=== PATIENT | female | born 1990 | race Caucasian/White ===

== ENCOUNTER 2020-01-25 18:50 | Inpatient (IN) | payer OTHER ==
[~2020-01-25] VITALS: Ht 175.3 cm; Wt 76.0 kg
[2020-01-25 19:06] VITALS: BP 123/68
[2020-01-25 19:35] LABS: BASOPHILS # (AUTO) 0.04 x10^3/uL (0-0.1); BASOPHILS % (AUTO) 0 % (0-1); EOSINOPHILS # (AUTO) 0.08 x10^3/uL (0-0.4); EOSINOPHILS % (AUTO) 1 % (1-7); LYMPHOCYTES # (AUTO) 2.25 x10^3/uL (1-3.4); LYMPHOCYTES % (AUTO) 24 % (22-44); MD NO; MEAN CORPUSCULAR HGB CONC 33.8 g/dL (32.4-35.8); MEAN CORPUSCULAR VOLUME 88.9 fL (80-100); MEAN PLATELET VOLUME 8.6 fL (7.4-10.4); MONOCYTES # (AUTO) 0.95 x10^3/uL (0.2-0.8); MONOCYTES % (AUTO) 10 % (2-9); NEUTROPHILS # (AUTO) 6.28 x10^3/uL (1.8-6.8); NEUTROPHILS % (AUTO) 66 % (42-75); PLATELET COUNT 199 x10^3/uL (130-400); RED BLOOD COUNT 3.83 x10^6/uL (3.82-5.3); RED CELL DISTRIBUTION WIDTH 12.8 % (9.6-15.2)
[2020-01-25] MEDS: LACTATED RINGERS 1,000 ML IV SCH (20:00)
[2020-01-25 20:04] LABS: INTERNATIONAL NORMALIZED RATIO 0.87 (0.93-1.1); PROTHROMBIN TIME 9.2 Seconds (9.6-11.5)
[2020-01-25] MEDS: FAMOTIDINE 20 MG TABLET PO SCH (21:00)
[2020-01-25] MEDS: PRENATAL VIT/IRON/FA 1 EACH TABLET PO SCH (21:00)
[2020-01-25] MEDS ORDERED: PLEASE ENTER ALLERGIES MC SCH (21:00)
[2020-01-25] MEDS ORDERED: POLYETHYLENE GLYCOL 17 GM PACKET PO ONE (21:00)
[2020-01-26] MEDS: LACTATED RINGERS 1,000 ML IV SCH ×3 (03:00→17:57)
[2020-01-26] MEDS ORDERED: FAMOTIDINE 20 MG TABLET ONE ×2 (07:11→16:02)
[2020-01-26] MEDS ORDERED: FERROUS GLUCONATE 324 MG TABLET ONE (07:12)
[2020-01-26] MEDS: FAMOTIDINE 20 MG TABLET PO SCH ×2 (07:13→16:06)
[2020-01-26] MEDS: FERROUS GLUCONATE 324 MG TABLET PO SCH (07:13)
[2020-01-26] MEDS ORDERED: PRENATAL VIT/IRON/FA 1 EACH TABLET ONE (19:50)
[2020-01-26 20:08] VITALS: BP 125/69
[2020-01-26] MEDS ORDERED: ACETAMINOPHEN 325 MG TABLET ONE (20:14)
[2020-01-26] MEDS ORDERED: CALCIUM CARBONATE 500 MG TAB.CHEW ONE (20:15)
[2020-01-26] MEDS: PRENATAL VIT/IRON/FA 1 EACH TABLET PO SCH (20:22)
[2020-01-26] MEDS: CALCIUM CARBONATE 500 MG TAB.CHEW PO PRN (20:23)
[2020-01-26] MEDS ORDERED: ACETAMINOPHEN 325 MG TABLET PO PRN (20:30)
[2020-01-27] MEDS: LACTATED RINGERS 1,000 ML IV SCH ×3 (01:42→20:30)
[2020-01-27 03:30] VITALS: BP 109/52
[2020-01-27 08:30] VITALS: BP 117/56
[2020-01-27] MEDS ORDERED: FERROUS GLUCONATE 324 MG TABLET ONE (08:44)
[2020-01-27] MEDS: FERROUS GLUCONATE 324 MG TABLET PO SCH (08:49)
[2020-01-27] MEDS: FAMOTIDINE 20 MG TABLET PO SCH ×2 (09:00→15:39)
[2020-01-27] MEDS ORDERED: FAMOTIDINE 20 MG TABLET ONE (15:37)
[2020-01-27] MEDS ORDERED: PRENATAL VIT/IRON/FA 1 EACH TABLET ONE (19:52)
[2020-01-27 20:28] VITALS: BP 128/68
[2020-01-27] MEDS: PRENATAL VIT/IRON/FA 1 EACH TABLET PO SCH (20:30)
[2020-01-27] MEDS ORDERED: MAGNESIUM HYDROXIDE 8%, 30ML UDC ONE (20:42)
[2020-01-27] MEDS ORDERED: MAGNESIUM HYDROXIDE 8%, 30ML UDC PO PRN (21:00)
[2020-01-28] MEDS: LACTATED RINGERS 1,000 ML IV SCH (04:15)
[2020-01-28] MEDS ORDERED: FERROUS GLUCONATE 324 MG TABLET ONE (09:42)
[2020-01-28] MEDS: FERROUS GLUCONATE 324 MG TABLET PO SCH (09:59)
[2020-01-28 16:00] VITALS: BP 113/60
[2020-01-28] MEDS ORDERED: FAMOTIDINE 20 MG TABLET ONE (18:32)
[2020-01-28] MEDS: FAMOTIDINE 20 MG TABLET PO SCH (18:34)
[2020-01-28] MEDS ORDERED: PRENATAL VIT/IRON/FA 1 EACH TABLET ONE (20:59)
[2020-01-28] MEDS: PRENATAL VIT/IRON/FA 1 EACH TABLET PO SCH (21:01)
[2020-01-29] MEDS: LACTATED RINGERS 1,000 ML IV SCH ×4 (03:32→19:32)
[2020-01-29] MEDS ORDERED: FERROUS GLUCONATE 324 MG TABLET ONE (07:49)
[2020-01-29] MEDS: FERROUS GLUCONATE 324 MG TABLET PO SCH (07:52)
[2020-01-29 08:24] VITALS: BP 122/70
[2020-01-29] MEDS: MAGNESIUM SULF. PMX 20GM/500ML 500 ML IV SCH (15:23)
[2020-01-29] MEDS ORDERED: MAGNESIUM SULF. PMX 20GM/500ML 500 ML IV ONE (15:27)
[2020-01-29] MEDS: SIMETHICONE 125 MG CHEW TAB PO SCH (15:53)
[2020-01-29] MEDS ORDERED: FAMOTIDINE 20 MG TABLET ONE (17:36)
[2020-01-29] MEDS ORDERED: PRENATAL VIT/IRON/FA 1 EACH TABLET ONE (17:36)
[2020-01-29] MEDS: FAMOTIDINE 20 MG TABLET PO SCH (17:39)
[2020-01-29] MEDS: PRENATAL VIT/IRON/FA 1 EACH TABLET PO SCH (17:39)
[2020-01-29 19:43] VITALS: BP 127/73
[2020-01-29] MEDS: POLYETHYLENE GLYCOL 17 GM PACKET NG SCH (20:15)
[2020-01-30] MEDS ORDERED: MAGNESIUM SULF. PMX 20GM/500ML 500 ML IV ONE (01:41)
[2020-01-30] MEDS: MAGNESIUM SULF. PMX 20GM/500ML 500 ML IV SCH (01:42)
[2020-01-30] MEDS: LACTATED RINGERS 1,000 ML IV SCH (01:42)
[2020-01-30 01:44] VITALS: BP 136/73
[2020-01-30 09:00] VITALS: BP 119/59
[2020-01-30] MEDS ORDERED: FERROUS GLUCONATE 324 MG TABLET ONE (10:26)
[2020-01-30] MEDS ORDERED: SIMETHICONE 80 MG CHEW TAB ONE (10:26)
[2020-01-30] MEDS: SIMETHICONE 125 MG CHEW TAB PO SCH ×3 (13:00→19:51)
[2020-01-30] MEDS ORDERED: PRENATAL VIT/IRON/FA 1 EACH TABLET ONE (16:09)
[2020-01-30] MEDS ORDERED: FAMOTIDINE 20 MG TABLET ONE (16:10)
[2020-01-30] MEDS: PRENATAL VIT/IRON/FA 1 EACH TABLET PO SCH (17:04)
[2020-01-30] MEDS: FAMOTIDINE 20 MG TABLET PO SCH (17:04)
[2020-01-30] MEDS: FERROUS GLUCONATE 324 MG TABLET PO SCH (17:05)
[2020-01-30] MEDS: POLYETHYLENE GLYCOL 17 GM PACKET NG SCH (17:06)
[2020-01-31] MEDS: SIMETHICONE 125 MG CHEW TAB PO SCH ×3 (08:00→18:00)
[2020-01-31] MEDS ORDERED: PRENATAL VIT/IRON/FA 1 EACH TABLET ONE (16:54)
[2020-01-31] MEDS ORDERED: SIMETHICONE 80 MG CHEW TAB ONE (16:54)
[2020-01-31] MEDS ORDERED: FAMOTIDINE 20 MG TABLET ONE (16:54)
[2020-01-31] MEDS ORDERED: FERROUS GLUCONATE 324 MG TABLET ONE (16:54)
[2020-01-31] MEDS: FAMOTIDINE 20 MG TABLET PO SCH (16:57)
[2020-01-31] MEDS: FERROUS GLUCONATE 324 MG TABLET PO SCH (16:57)
[2020-01-31] MEDS: PRENATAL VIT/IRON/FA 1 EACH TABLET PO SCH (16:57)
[2020-01-31] MEDS: POLYETHYLENE GLYCOL 17 GM PACKET NG SCH (17:39)
[2020-01-31 19:09] VITALS: BP 132/74
[2020-01-31] MEDS ORDERED: SIMETHICONE 125 MG CHEW TAB PO PRN (19:30)
[2020-01-31] MEDS: SODIUM CHLORIDE FLUSH 3ML SYRINGE IVF SCH (21:19)
[2020-02-01] MEDS: SODIUM CHLORIDE FLUSH 3ML SYRINGE IVF SCH ×2 (12:00→21:30)
[2020-02-01] MEDS ORDERED: FERROUS GLUCONATE 324 MG TABLET ONE (17:45)
[2020-02-01] MEDS ORDERED: FAMOTIDINE 20 MG TABLET ONE (17:45)
[2020-02-01] MEDS ORDERED: PRENATAL VIT/IRON/FA 1 EACH TABLET ONE (17:45)
[2020-02-01] MEDS: POLYETHYLENE GLYCOL 17 GM PACKET PO SCH (17:50)
[2020-02-01] MEDS: PRENATAL VIT/IRON/FA 1 EACH TABLET PO SCH (17:50)
[2020-02-01] MEDS: FERROUS GLUCONATE 324 MG TABLET PO SCH (17:50)
[2020-02-01] MEDS: FAMOTIDINE 20 MG TABLET PO SCH (17:50)
[2020-02-02] MEDS: SODIUM CHLORIDE FLUSH 3ML SYRINGE IVF SCH (08:15)
[2020-02-02] MEDS ORDERED: PRENATAL VIT/IRON/FA 1 EACH TABLET ONE (17:02)
[2020-02-02] MEDS ORDERED: FAMOTIDINE 20 MG TABLET ONE (17:02)
[2020-02-02] MEDS ORDERED: FERROUS GLUCONATE 324 MG TABLET ONE (17:02)
[2020-02-02] MEDS: FAMOTIDINE 20 MG TABLET PO SCH (17:10)
[2020-02-02] MEDS: FERROUS GLUCONATE 324 MG TABLET PO SCH (17:10)
[2020-02-02] MEDS: PRENATAL VIT/IRON/FA 1 EACH TABLET PO SCH (17:10)
[2020-02-02] MEDS: POLYETHYLENE GLYCOL 17 GM PACKET PO SCH (17:11)
[2020-02-03] MEDS: SODIUM CHLORIDE FLUSH 3ML SYRINGE IVF SCH ×2 (09:00→16:56)
[2020-02-03] MEDS ORDERED: PRENATAL VIT/IRON/FA 1 EACH TABLET ONE ×2 (16:41→19:56)
[2020-02-03] MEDS ORDERED: FERROUS SULFATE 325 MG TABLET ONE (16:41)
[2020-02-03] MEDS ORDERED: FAMOTIDINE 20 MG TABLET ONE (16:41)
[2020-02-03] MEDS: FAMOTIDINE 20 MG TABLET PO SCH (16:47)
[2020-02-03] MEDS ORDERED: FERROUS GLUCONATE 324 MG TABLET ONE (16:48)
[2020-02-03] MEDS: FERROUS GLUCONATE 324 MG TABLET PO SCH (16:50)
[2020-02-03] MEDS: PRENATAL VIT/IRON/FA 1 EACH TABLET PO SCH ×2 (17:00→20:12)
[2020-02-03] MEDS: POLYETHYLENE GLYCOL 17 GM PACKET PO SCH (20:12)
[2020-02-04] MEDS: SODIUM CHLORIDE FLUSH 3ML SYRINGE IVF SCH (09:43)
[2020-02-04] MEDS ORDERED: FERROUS GLUCONATE 324 MG TABLET ONE (16:38)
[2020-02-04] MEDS ORDERED: PRENATAL VIT/IRON/FA 1 EACH TABLET ONE (16:38)
[2020-02-04] MEDS ORDERED: FAMOTIDINE 20 MG TABLET ONE (16:38)
[2020-02-04] MEDS: POLYETHYLENE GLYCOL 17 GM PACKET PO SCH (17:00)
[2020-02-04] MEDS: FAMOTIDINE 20 MG TABLET PO SCH (17:09)
[2020-02-04] MEDS: PRENATAL VIT/IRON/FA 1 EACH TABLET PO SCH (17:09)
[2020-02-04] MEDS: FERROUS GLUCONATE 324 MG TABLET PO SCH (17:09)
[2020-02-05] MEDS: SODIUM CHLORIDE FLUSH 3ML SYRINGE IVF SCH ×3 (09:56→16:51)
[2020-02-05] MEDS ORDERED: FERROUS GLUCONATE 324 MG TABLET ONE (16:40)
[2020-02-05] MEDS ORDERED: FAMOTIDINE 20 MG TABLET ONE (16:41)
[2020-02-05] MEDS ORDERED: PRENATAL VIT/IRON/FA 1 EACH TABLET ONE (16:41)
[2020-02-05] MEDS: PRENATAL VIT/IRON/FA 1 EACH TABLET PO SCH (16:51)
[2020-02-05] MEDS: FAMOTIDINE 20 MG TABLET PO SCH (16:51)
[2020-02-05] MEDS: FERROUS GLUCONATE 324 MG TABLET PO SCH (16:51)
[2020-02-05] MEDS: POLYETHYLENE GLYCOL 17 GM PACKET PO SCH (16:54)
[2020-02-05 20:14] VITALS: BP 121/70
[2020-02-06 07:55] VITALS: BP 110/65
[2020-02-06] MEDS: SODIUM CHLORIDE FLUSH 3ML SYRINGE IVF SCH (09:00)
[2020-02-06] MEDS ORDERED: FERROUS GLUCONATE 324 MG TABLET ONE (16:39)
[2020-02-06] MEDS ORDERED: PRENATAL VIT/IRON/FA 1 EACH TABLET ONE (16:39)
[2020-02-06] MEDS ORDERED: FAMOTIDINE 20 MG TABLET ONE (16:39)
[2020-02-06] MEDS ORDERED: POLYETHYLENE GLYCOL 17 GM PACKET ONE (16:52)
[2020-02-06] MEDS: FAMOTIDINE 20 MG TABLET PO SCH (16:55)
[2020-02-06] MEDS: POLYETHYLENE GLYCOL 17 GM PACKET PO SCH (16:55)
[2020-02-06] MEDS: PRENATAL VIT/IRON/FA 1 EACH TABLET PO SCH (16:55)
[2020-02-06] MEDS: FERROUS GLUCONATE 324 MG TABLET PO SCH (16:56)
[2020-02-06 19:31] VITALS: BP 117/65
[2020-02-07] MEDS ORDERED: PRENATAL VIT/IRON/FA 1 EACH TABLET ONE (17:01)
[2020-02-07] MEDS ORDERED: FAMOTIDINE 20 MG TABLET ONE (17:01)
[2020-02-07] MEDS ORDERED: FERROUS GLUCONATE 324 MG TABLET ONE (17:01)
[2020-02-07] MEDS: FAMOTIDINE 20 MG TABLET PO SCH (17:03)
[2020-02-07] MEDS: FERROUS GLUCONATE 324 MG TABLET PO SCH (17:03)
[2020-02-07] MEDS: PRENATAL VIT/IRON/FA 1 EACH TABLET PO SCH (17:03)
[2020-02-07] MEDS: SODIUM CHLORIDE FLUSH 3ML SYRINGE IVF SCH (21:00)
[2020-02-08] MEDS: SODIUM CHLORIDE FLUSH 3ML SYRINGE IVF SCH (11:00)
[2020-02-08] MEDS ORDERED: FAMOTIDINE 20 MG TABLET ONE (15:49)
[2020-02-08] MEDS ORDERED: FERROUS GLUCONATE 324 MG TABLET ONE (15:49)
[2020-02-08] MEDS ORDERED: PRENATAL VIT/IRON/FA 1 EACH TABLET ONE (15:49)
[2020-02-08] MEDS: FAMOTIDINE 20 MG TABLET PO SCH (16:30)
[2020-02-08] MEDS: FERROUS GLUCONATE 324 MG TABLET PO SCH (17:00)
[2020-02-08] MEDS: PRENATAL VIT/IRON/FA 1 EACH TABLET PO SCH (17:00)
[2020-02-08] MEDS ORDERED: POLYETHYLENE GLYCOL 17 GM PACKET ONE (18:23)
[2020-02-08] MEDS: POLYETHYLENE GLYCOL 17 GM PACKET PO SCH (18:26)
[2020-02-09] MEDS: SODIUM CHLORIDE FLUSH 3ML SYRINGE IVF SCH (11:00)
[2020-02-09] MEDS ORDERED: FERROUS GLUCONATE 324 MG TABLET ONE (16:14)
[2020-02-09] MEDS ORDERED: PRENATAL VIT/IRON/FA 1 EACH TABLET ONE (16:15)
[2020-02-09] MEDS ORDERED: FAMOTIDINE 20 MG TABLET ONE (16:15)
[2020-02-09] MEDS: PRENATAL VIT/IRON/FA 1 EACH TABLET PO SCH (16:16)
[2020-02-09] MEDS: FAMOTIDINE 20 MG TABLET PO SCH (16:17)
[2020-02-09] MEDS: FERROUS GLUCONATE 324 MG TABLET PO SCH (16:17)
[2020-02-10] MEDS: SODIUM CHLORIDE FLUSH 3ML SYRINGE IVF SCH ×2 (09:00→21:00)
[2020-02-10] MEDS ORDERED: FERROUS GLUCONATE 324 MG TABLET ONE (17:04)
[2020-02-10] MEDS ORDERED: PRENATAL VIT/IRON/FA 1 EACH TABLET ONE (17:04)
[2020-02-10] MEDS ORDERED: FAMOTIDINE 20 MG TABLET ONE (17:05)
[2020-02-10] MEDS: FERROUS GLUCONATE 324 MG TABLET PO SCH (17:06)
[2020-02-10] MEDS: FAMOTIDINE 20 MG TABLET PO SCH (17:06)
[2020-02-10] MEDS: PRENATAL VIT/IRON/FA 1 EACH TABLET PO SCH (17:06)
[2020-02-11] MEDS: SODIUM CHLORIDE FLUSH 3ML SYRINGE IVF SCH ×4 (09:00→23:00)
[2020-02-11] MEDS ORDERED: FAMOTIDINE 20 MG TABLET ONE (15:50)
[2020-02-11] MEDS: FAMOTIDINE 20 MG TABLET PO SCH (15:52)
[2020-02-11] MEDS ORDERED: FERROUS GLUCONATE 324 MG TABLET ONE (16:49)
[2020-02-11] MEDS ORDERED: PRENATAL VIT/IRON/FA 1 EACH TABLET ONE (16:49)
[2020-02-11] MEDS: PRENATAL VIT/IRON/FA 1 EACH TABLET PO SCH (16:50)
[2020-02-11] MEDS: FERROUS GLUCONATE 324 MG TABLET PO SCH (16:50)
[2020-02-11 19:06] VITALS: BP 108/67
[2020-02-12] MEDS: POLYETHYLENE GLYCOL 17 GM PACKET PO SCH ×2 (09:00→17:03)
[2020-02-12] MEDS: SODIUM CHLORIDE FLUSH 3ML SYRINGE IVF SCH ×2 (09:00→21:00)
[2020-02-12] MEDS ORDERED: FAMOTIDINE 20 MG TABLET ONE (15:52)
[2020-02-12] MEDS: FAMOTIDINE 20 MG TABLET PO SCH (15:53)
[2020-02-12] MEDS ORDERED: PRENATAL VIT/IRON/FA 1 EACH TABLET ONE (16:59)
[2020-02-12] MEDS ORDERED: POLYETHYLENE GLYCOL 17 GM PACKET ONE (16:59)
[2020-02-12] MEDS ORDERED: FERROUS GLUCONATE 324 MG TABLET ONE (16:59)
[2020-02-12] MEDS: PRENATAL VIT/IRON/FA 1 EACH TABLET PO SCH (17:03)
[2020-02-12] MEDS: FERROUS GLUCONATE 324 MG TABLET PO SCH (17:03)
[2020-02-12 19:13] VITALS: BP 115/78
[2020-02-13] MEDS: SODIUM CHLORIDE FLUSH 3ML SYRINGE IVF SCH ×4 (09:00→21:00)
[2020-02-13] MEDS: POLYETHYLENE GLYCOL 17 GM PACKET PO SCH ×2 (09:00→16:08)
[2020-02-13] MEDS ORDERED: FERROUS GLUCONATE 324 MG TABLET ONE (16:03)
[2020-02-13] MEDS ORDERED: FAMOTIDINE 20 MG TABLET ONE (16:03)
[2020-02-13] MEDS ORDERED: PRENATAL VIT/IRON/FA 1 EACH TABLET ONE (16:03)
[2020-02-13] MEDS ORDERED: POLYETHYLENE GLYCOL 17 GM PACKET ONE (16:03)
[2020-02-13] MEDS: PRENATAL VIT/IRON/FA 1 EACH TABLET PO SCH (16:07)
[2020-02-13] MEDS: FAMOTIDINE 20 MG TABLET PO SCH (16:07)
[2020-02-13] MEDS: FERROUS GLUCONATE 324 MG TABLET PO SCH (16:07)
[2020-02-14] MEDS: SODIUM CHLORIDE FLUSH 3ML SYRINGE IVF SCH ×2 (09:00→21:00)
[2020-02-14] MEDS: POLYETHYLENE GLYCOL 17 GM PACKET PO SCH ×2 (09:00→16:49)
[2020-02-14 11:00] VITALS: BP 116/65
[2020-02-14] MEDS ORDERED: PRENATAL VIT/IRON/FA 1 EACH TABLET ONE (16:42)
[2020-02-14] MEDS ORDERED: POLYETHYLENE GLYCOL 17 GM PACKET ONE (16:43)
[2020-02-14] MEDS ORDERED: FERROUS GLUCONATE 324 MG TABLET ONE (16:43)
[2020-02-14] MEDS ORDERED: FAMOTIDINE 20 MG TABLET ONE (16:43)
[2020-02-14] MEDS: PRENATAL VIT/IRON/FA 1 EACH TABLET PO SCH (16:49)
[2020-02-14] MEDS: FERROUS GLUCONATE 324 MG TABLET PO SCH (16:49)
[2020-02-14] MEDS: FAMOTIDINE 20 MG TABLET PO SCH (16:49)
[2020-02-14 19:19] VITALS: BP 118/66
[2020-02-15] MEDS: POLYETHYLENE GLYCOL 17 GM PACKET PO SCH (09:00)
[2020-02-15] MEDS: SODIUM CHLORIDE FLUSH 3ML SYRINGE IVF SCH ×2 (09:00→21:00)
[2020-02-15] MEDS ORDERED: FAMOTIDINE 20 MG TABLET ONE (15:18)
[2020-02-15] MEDS: FAMOTIDINE 20 MG TABLET PO SCH (15:19)
[2020-02-15] MEDS: PRENATAL VIT/IRON/FA 1 EACH TABLET PO SCH (17:43)
[2020-02-15] MEDS: FERROUS GLUCONATE 324 MG TABLET PO SCH (17:43)
[2020-02-16] MEDS: SODIUM CHLORIDE FLUSH 3ML SYRINGE IVF SCH ×3 (03:00→21:04)
[2020-02-16] MEDS: POLYETHYLENE GLYCOL 17 GM PACKET PO SCH ×2 (09:00→17:39)
[2020-02-16] MEDS ORDERED: FERROUS GLUCONATE 324 MG TABLET ONE (17:31)
[2020-02-16] MEDS ORDERED: FAMOTIDINE 20 MG TABLET ONE (17:31)
[2020-02-16] MEDS ORDERED: PRENATAL VIT/IRON/FA 1 EACH TABLET ONE (17:31)
[2020-02-16] MEDS: PRENATAL VIT/IRON/FA 1 EACH TABLET PO SCH (17:33)
[2020-02-16] MEDS: FERROUS GLUCONATE 324 MG TABLET PO SCH (17:33)
[2020-02-16] MEDS: FAMOTIDINE 20 MG TABLET PO SCH (17:33)
[2020-02-16] MEDS ORDERED: POLYETHYLENE GLYCOL 17 GM PACKET ONE (17:37)
[2020-02-16 19:10] VITALS: BP 111/76
[2020-02-17] MEDS: POLYETHYLENE GLYCOL 17 GM PACKET PO SCH (09:00)
[2020-02-17 10:30] VITALS: BP 120/63
[2020-02-17] MEDS ORDERED: FAMOTIDINE 20 MG TABLET ONE (17:32)
[2020-02-17] MEDS ORDERED: PRENATAL VIT/IRON/FA 1 EACH TABLET ONE (17:33)
[2020-02-17] MEDS ORDERED: DOCUSATE 100 MG CAPSULE ONE (17:33)
[2020-02-17] MEDS: FAMOTIDINE 20 MG TABLET PO SCH (17:35)
[2020-02-17] MEDS: PRENATAL VIT/IRON/FA 1 EACH TABLET PO SCH (17:35)
[2020-02-17] MEDS ORDERED: FERROUS SULFATE 325 MG TABLET ONE (17:39)
[2020-02-17] MEDS: FERROUS GLUCONATE 324 MG TABLET PO SCH (17:51)
[2020-02-17] MEDS: SODIUM CHLORIDE FLUSH 3ML SYRINGE IVF SCH ×2 (17:53→21:15)
[2020-02-18] MEDS ORDERED: FAMOTIDINE 20 MG TABLET ONE (16:07)
[2020-02-18] MEDS: FAMOTIDINE 20 MG TABLET PO SCH (16:08)
[2020-02-18] MEDS ORDERED: PRENATAL VIT/IRON/FA 1 EACH TABLET ONE (16:54)
[2020-02-18] MEDS ORDERED: FERROUS GLUCONATE 324 MG TABLET ONE (16:54)
[2020-02-18] MEDS: SODIUM CHLORIDE FLUSH 3ML SYRINGE IVF SCH ×2 (16:56→21:00)
[2020-02-18] MEDS: FERROUS GLUCONATE 324 MG TABLET PO SCH (16:56)
[2020-02-18] MEDS: PRENATAL VIT/IRON/FA 1 EACH TABLET PO SCH (16:56)
[2020-02-18] MEDS ORDERED: POLYETHYLENE GLYCOL 17 GM PACKET ONE (16:59)
[2020-02-18] MEDS: POLYETHYLENE GLYCOL 17 GM PACKET PO SCH (17:00)
[2020-02-19] MEDS: SODIUM CHLORIDE FLUSH 3ML SYRINGE IVF SCH (08:14)
[2020-02-19 08:15] VITALS: BP 121/57
[2020-02-19] MEDS ORDERED: FAMOTIDINE 20 MG TABLET ONE (11:24)
[2020-02-19] MEDS: FAMOTIDINE 20 MG TABLET PO SCH (11:25)
[2020-02-19] MEDS: FERROUS GLUCONATE 324 MG TABLET PO SCH (16:30)
[2020-02-19] MEDS ORDERED: PRENATAL VIT/IRON/FA 1 EACH TABLET ONE (16:50)
[2020-02-19] MEDS ORDERED: POLYETHYLENE GLYCOL 17 GM PACKET ONE (16:50)
[2020-02-19] MEDS ORDERED: FERROUS GLUCONATE 324 MG TABLET ONE (16:50)
[2020-02-19] MEDS ORDERED: DOCUSATE 100 MG CAPSULE ONE (16:50)
[2020-02-19] MEDS: DOCUSATE 100 MG CAPSULE PO SCH (16:54)
[2020-02-19] MEDS: POLYETHYLENE GLYCOL 17 GM PACKET PO SCH (16:54)
[2020-02-19] MEDS: PRENATAL VIT/IRON/FA 1 EACH TABLET PO SCH (16:54)
[2020-02-20] MEDS: SODIUM CHLORIDE FLUSH 3ML SYRINGE IVF SCH ×3 (03:25→19:26)
[2020-02-20 08:00] VITALS: BP 111/58
[2020-02-20] MEDS ORDERED: DOCUSATE 100 MG CAPSULE ONE ×2 (08:06→19:22)
[2020-02-20] MEDS: DOCUSATE 100 MG CAPSULE PO SCH ×2 (08:08→19:26)
[2020-02-20 08:10] LABS: BASOPHILS # (AUTO) 0.02 x10^3/uL (0-0.1); BASOPHILS % (AUTO) 0 % (0-1); EOSINOPHILS # (AUTO) 0.09 x10^3/uL (0-0.4); EOSINOPHILS % (AUTO) 1 % (1-7); LYMPHOCYTES % (AUTO) 23 % (22-44); MD NO; MEAN CORPUSCULAR HEMOGLOBIN 30.3 pg (27.0-34.8); MEAN CORPUSCULAR HGB CONC 33.9 g/dL (32.4-35.8); MEAN CORPUSCULAR VOLUME 89.3 fL (80-100); MEAN PLATELET VOLUME 8.8 fL (7.4-10.4); MONOCYTES # (AUTO) 0.59 x10^3/uL (0.2-0.8); MONOCYTES % (AUTO) 7 % (2-9); NEUTROPHILS # (AUTO) 5.88 x10^3/uL (1.8-6.8); NEUTROPHILS % (AUTO) 69 % (42-75); PLATELET COUNT 193 x10^3/uL (130-400); RED BLOOD COUNT 4.16 x10^6/uL (3.82-5.3); RED CELL DISTRIBUTION WIDTH 12.8 % (9.6-15.2)
[2020-02-20] MEDS ORDERED: FAMOTIDINE 20 MG TABLET ONE (14:27)
[2020-02-20] MEDS: FAMOTIDINE 20 MG TABLET PO SCH (14:29)
[2020-02-20] MEDS ORDERED: POLYETHYLENE GLYCOL 17 GM PACKET ONE (16:53)
[2020-02-20] MEDS ORDERED: PRENATAL VIT/IRON/FA 1 EACH TABLET ONE (16:53)
[2020-02-20] MEDS: POLYETHYLENE GLYCOL 17 GM PACKET PO SCH (16:56)
[2020-02-20] MEDS: PRENATAL VIT/IRON/FA 1 EACH TABLET PO SCH (16:56)
[2020-02-21 07:55] VITALS: BP 117/60
[2020-02-21] MEDS: SODIUM CHLORIDE FLUSH 3ML SYRINGE IVF SCH (07:55)
[2020-02-21] MEDS ORDERED: DOCUSATE 100 MG CAPSULE ONE (08:14)
[2020-02-21] MEDS ORDERED: PRENATAL VIT/IRON/FA 1 EACH TABLET ONE (08:14)
[2020-02-21] MEDS: DOCUSATE 100 MG CAPSULE PO SCH (08:18)
[2020-02-21] MEDS: PRENATAL VIT/IRON/FA 1 EACH TABLET PO SCH (08:19)
[2020-02-21] MEDS ORDERED: FAMOTIDINE 20 MG TABLET ONE (14:38)
[2020-02-21] MEDS: FAMOTIDINE 20 MG TABLET PO SCH (14:41)
[2020-02-21] MEDS ORDERED: POLYETHYLENE GLYCOL 17 GM PACKET ONE (16:35)
[2020-02-21] MEDS: POLYETHYLENE GLYCOL 17 GM PACKET PO SCH (16:38)
[2020-02-22] MEDS ORDERED: DOCUSATE 100 MG CAPSULE ONE ×2 (11:33→22:02)
[2020-02-22] MEDS ORDERED: FAMOTIDINE 20 MG TABLET ONE (11:33)
[2020-02-22] MEDS: DOCUSATE 100 MG CAPSULE PO SCH ×2 (11:36→21:00)
[2020-02-22] MEDS: FAMOTIDINE 20 MG TABLET PO SCH (11:36)
[2020-02-22] MEDS ORDERED: PRENATAL VIT/IRON/FA 1 EACH TABLET ONE (17:24)
[2020-02-22] MEDS ORDERED: FERROUS GLUCONATE 324 MG TABLET ONE (17:24)
[2020-02-22] MEDS ORDERED: POLYETHYLENE GLYCOL 17 GM PACKET ONE (17:24)
[2020-02-22] MEDS: POLYETHYLENE GLYCOL 17 GM PACKET PO SCH (17:28)
[2020-02-22] MEDS: PRENATAL VIT/IRON/FA 1 EACH TABLET PO SCH (17:29)
[2020-02-22] MEDS: SODIUM CHLORIDE FLUSH 3ML SYRINGE IVF SCH ×3 (18:09→22:09)
[2020-02-22 22:08] VITALS: BP 114/60
[2020-02-23] MEDS ORDERED: POLYETHYLENE GLYCOL 17 GM PACKET ONE (08:00)
[2020-02-23] MEDS ORDERED: DOCUSATE 100 MG CAPSULE ONE ×2 (08:00→20:16)
[2020-02-23] MEDS: DOCUSATE 100 MG CAPSULE PO SCH ×2 (08:20→20:20)
[2020-02-23] MEDS ORDERED: FAMOTIDINE 20 MG TABLET ONE ×2 (08:35→20:16)
[2020-02-23] MEDS: FAMOTIDINE 20 MG TABLET PO SCH ×2 (08:37→20:20)
[2020-02-23] MEDS: SODIUM CHLORIDE FLUSH 3ML SYRINGE IVF SCH ×2 (09:00→20:20)
[2020-02-23] MEDS ORDERED: CALCIUM CARBONATE 500 MG TAB.CHEW ONE (17:16)
[2020-02-23] MEDS: CALCIUM CARBONATE 500 MG TAB.CHEW PO PRN (17:18)
[2020-02-23] MEDS: POLYETHYLENE GLYCOL 17 GM PACKET PO SCH (17:19)
[2020-02-23] MEDS ORDERED: PRENATAL VIT/IRON/FA 1 EACH TABLET ONE (20:16)
[2020-02-23] MEDS: PRENATAL VIT/IRON/FA 1 EACH TABLET PO SCH (20:20)
[2020-02-23 20:23] VITALS: BP 122/73
[2020-02-24] MEDS ORDERED: DOCUSATE 100 MG CAPSULE ONE (08:32)
[2020-02-24] MEDS: SODIUM CHLORIDE FLUSH 3ML SYRINGE IVF SCH ×2 (08:33→23:09)
[2020-02-24] MEDS: DOCUSATE 100 MG CAPSULE PO SCH ×2 (08:33→21:00)
[2020-02-24 09:42] VITALS: BP 136/68
[2020-02-24] MEDS ORDERED: POLYETHYLENE GLYCOL 17 GM PACKET ONE (14:10)
[2020-02-24] MEDS ORDERED: FAMOTIDINE 20 MG TABLET ONE (15:01)
[2020-02-24] MEDS: FAMOTIDINE 20 MG TABLET PO SCH ×2 (15:03→21:00)
[2020-02-24] MEDS: POLYETHYLENE GLYCOL 17 GM PACKET PO SCH (17:09)
[2020-02-24 19:43] VITALS: BP 122/83
[2020-02-24] MEDS ORDERED: PRENATAL VIT/IRON/FA 1 EACH TABLET ONE (20:47)
[2020-02-24] MEDS: PRENATAL VIT/IRON/FA 1 EACH TABLET PO SCH (20:49)
[2020-02-25 08:12] VITALS: BP 117/65
[2020-02-25] MEDS ORDERED: DOCUSATE 100 MG CAPSULE ONE ×2 (08:45→19:34)
[2020-02-25] MEDS: SODIUM CHLORIDE FLUSH 3ML SYRINGE IVF SCH ×2 (08:47→19:38)
[2020-02-25] MEDS: DOCUSATE 100 MG CAPSULE PO SCH ×2 (08:47→19:37)
[2020-02-25] MEDS ORDERED: FAMOTIDINE 20 MG TABLET ONE ×2 (11:03→19:35)
[2020-02-25] MEDS: FAMOTIDINE 20 MG TABLET PO SCH ×2 (11:04→21:00)
[2020-02-25] MEDS ORDERED: POLYETHYLENE GLYCOL 17 GM PACKET ONE (14:06)
[2020-02-25] MEDS: POLYETHYLENE GLYCOL 17 GM PACKET PO SCH (17:47)
[2020-02-25] MEDS ORDERED: PRENATAL VIT/IRON/FA 1 EACH TABLET ONE (19:34)
[2020-02-25] MEDS: PRENATAL VIT/IRON/FA 1 EACH TABLET PO SCH (19:37)
[2020-02-26 09:22] LABS: BASOPHILS # (AUTO) 0.03 x10^3/uL (0-0.1); BASOPHILS % (AUTO) 0 % (0-1); EOSINOPHILS # (AUTO) 0.06 x10^3/uL (0-0.4); EOSINOPHILS % (AUTO) 1 % (1-7); LYMPHOCYTES # (AUTO) 1.85 x10^3/uL (1-3.4); LYMPHOCYTES % (AUTO) 20 % (22-44); MD NO; MEAN CORPUSCULAR HEMOGLOBIN 30.1 pg (27.0-34.8); MEAN CORPUSCULAR HGB CONC 33.5 g/dL (32.4-35.8); MEAN PLATELET VOLUME 9.2 fL (7.4-10.4); MONOCYTES # (AUTO) 0.53 x10^3/uL (0.2-0.8); MONOCYTES % (AUTO) 6 % (2-9); NEUTROPHILS # (AUTO) 6.67 x10^3/uL (1.8-6.8); NEUTROPHILS % (AUTO) 73 % (42-75); PLATELET COUNT 202 x10^3/uL (130-400); RED BLOOD COUNT 4.31 x10^6/uL (3.82-5.3)
[2020-02-26] MEDS ORDERED: DOCUSATE 100 MG CAPSULE ONE ×2 (09:56→19:11)
[2020-02-26] MEDS: DOCUSATE 100 MG CAPSULE PO SCH ×2 (09:57→20:15)
[2020-02-26] MEDS: SODIUM CHLORIDE FLUSH 3ML SYRINGE IVF SCH ×2 (12:18→20:05)
[2020-02-26] MEDS ORDERED: POLYETHYLENE GLYCOL 17 GM PACKET ONE (17:22)
[2020-02-26] MEDS: POLYETHYLENE GLYCOL 17 GM PACKET PO SCH (17:23)
[2020-02-26] MEDS: FAMOTIDINE 20 MG TABLET PO SCH ×2 (17:23→20:15)
[2020-02-26] MEDS ORDERED: FAMOTIDINE 20 MG TABLET ONE (19:11)
[2020-02-26] MEDS ORDERED: PRENATAL VIT/IRON/FA 1 EACH TABLET ONE (19:11)
[2020-02-26] MEDS: PRENATAL VIT/IRON/FA 1 EACH TABLET PO SCH (20:05)
[2020-02-26 20:08] VITALS: BP 116/69
[2020-02-27] MEDS ORDERED: DOCUSATE 100 MG CAPSULE ONE (08:33)
[2020-02-27] MEDS: DOCUSATE 100 MG CAPSULE PO SCH ×2 (08:36→21:00)
[2020-02-27] MEDS ORDERED: FAMOTIDINE 20 MG TABLET ONE (16:17)
[2020-02-27] MEDS: FAMOTIDINE 20 MG TABLET PO SCH ×2 (16:19→21:00)
[2020-02-27] MEDS ORDERED: POLYETHYLENE GLYCOL 17 GM PACKET ONE (16:21)
[2020-02-27] MEDS: POLYETHYLENE GLYCOL 17 GM PACKET PO SCH (16:24)
[2020-02-27] MEDS ORDERED: PRENATAL VIT/IRON/FA 1 EACH TABLET ONE (19:39)
[2020-02-27] MEDS: PRENATAL VIT/IRON/FA 1 EACH TABLET PO SCH (19:41)
[2020-02-27] MEDS: SODIUM CHLORIDE FLUSH 3ML SYRINGE IVF SCH ×2 (19:43→21:00)
[2020-02-28] MEDS: FAMOTIDINE 20 MG TABLET PO SCH ×2 (09:00→21:00)
[2020-02-28] MEDS ORDERED: DOCUSATE 100 MG CAPSULE ONE (10:32)
[2020-02-28] MEDS: DOCUSATE 100 MG CAPSULE PO SCH ×2 (10:36→21:00)
[2020-02-28] MEDS: SODIUM CHLORIDE FLUSH 3ML SYRINGE IVF SCH ×2 (10:36→19:38)
[2020-02-28] MEDS ORDERED: PRENATAL VIT/IRON/FA 1 EACH TABLET ONE (16:48)
[2020-02-28] MEDS ORDERED: POLYETHYLENE GLYCOL 17 GM PACKET ONE (16:48)
[2020-02-28] MEDS: PRENATAL VIT/IRON/FA 1 EACH TABLET PO SCH (16:50)
[2020-02-28] MEDS: POLYETHYLENE GLYCOL 17 GM PACKET PO SCH (16:50)
[2020-02-29 08:15] VITALS: BP 122/56
[2020-02-29] MEDS: SODIUM CHLORIDE FLUSH 3ML SYRINGE IVF SCH ×2 (08:20→20:41)
[2020-02-29] MEDS: DOCUSATE 100 MG CAPSULE PO SCH ×2 (09:05→20:42)
[2020-02-29 14:05] VITALS: BP 125/75
[2020-02-29] MEDS ORDERED: FAMOTIDINE 20 MG TABLET ONE (16:09)
[2020-02-29] MEDS: FAMOTIDINE 20 MG TABLET PO SCH ×2 (16:16→20:42)
[2020-02-29] MEDS ORDERED: POLYETHYLENE GLYCOL 17 GM PACKET ONE (16:18)
[2020-02-29] MEDS ORDERED: PRENATAL VIT/IRON/FA 1 EACH TABLET ONE (16:18)
[2020-02-29] MEDS: PRENATAL VIT/IRON/FA 1 EACH TABLET PO SCH (16:19)
[2020-02-29] MEDS: POLYETHYLENE GLYCOL 17 GM PACKET PO SCH (16:20)
[2020-02-29 19:00] LABS: BASOPHILS # (AUTO) 0.03 x10^3/uL (0-0.1); BASOPHILS % (AUTO) 0 % (0-1); EOSINOPHILS # (AUTO) 0.08 x10^3/uL (0-0.4); EOSINOPHILS % (AUTO) 1 % (1-7); LYMPHOCYTES # (AUTO) 2.03 x10^3/uL (1-3.4); LYMPHOCYTES % (AUTO) 21 % (22-44); MD NO; MEAN CORPUSCULAR HEMOGLOBIN 30.2 pg (27.0-34.8); MEAN CORPUSCULAR HGB CONC 34.1 g/dL (32.4-35.8); MEAN CORPUSCULAR VOLUME 88.6 fL (80-100); MEAN PLATELET VOLUME 8.9 fL (7.4-10.4); MONOCYTES # (AUTO) 0.66 x10^3/uL (0.2-0.8); MONOCYTES % (AUTO) 7 % (2-9); NEUTROPHILS # (AUTO) 7.04 x10^3/uL (1.8-6.8); NEUTROPHILS % (AUTO) 72 % (42-75); PLATELET COUNT 217 x10^3/uL (130-400); RED BLOOD COUNT 4.27 x10^6/uL (3.82-5.3); RED CELL DISTRIBUTION WIDTH 12.8 % (9.6-15.2)
[2020-03-01] MEDS: DOCUSATE 100 MG CAPSULE PO SCH ×2 (09:00→20:09)
[2020-03-01 09:45] VITALS: BP 104/55
[2020-03-01] MEDS: SODIUM CHLORIDE FLUSH 3ML SYRINGE IVF SCH ×2 (11:00→20:30)
[2020-03-01] MEDS ORDERED: FAMOTIDINE 20 MG TABLET ONE (16:12)
[2020-03-01] MEDS ORDERED: PRENATAL VIT/IRON/FA 1 EACH TABLET ONE (16:12)
[2020-03-01] MEDS ORDERED: POLYETHYLENE GLYCOL 17 GM PACKET ONE (16:13)
[2020-03-01] MEDS: FAMOTIDINE 20 MG TABLET PO SCH ×2 (16:15→20:09)
[2020-03-01] MEDS: POLYETHYLENE GLYCOL 17 GM PACKET PO SCH (16:15)
[2020-03-01] MEDS: PRENATAL VIT/IRON/FA 1 EACH TABLET PO SCH (16:15)
[2020-03-01 19:43] LABS: CREATININE 0.55 mg/dL (0.55-1.02)
[2020-03-02] MEDS: DOCUSATE 100 MG CAPSULE PO SCH (09:00)
[2020-03-02] MEDS: SODIUM CHLORIDE FLUSH 3ML SYRINGE IVF SCH (12:15)
[2020-03-02] MEDS ORDERED: PRENATAL VIT/IRON/FA 1 EACH TABLET ONE (17:33)
[2020-03-02] MEDS ORDERED: POLYETHYLENE GLYCOL 17 GM PACKET ONE (17:33)
[2020-03-02] MEDS ORDERED: FAMOTIDINE 20 MG TABLET ONE (17:33)
[2020-03-02] MEDS: POLYETHYLENE GLYCOL 17 GM PACKET PO SCH (17:35)
[2020-03-02] MEDS: PRENATAL VIT/IRON/FA 1 EACH TABLET PO SCH (17:36)
[2020-03-02] MEDS: FAMOTIDINE 20 MG TABLET PO SCH (17:36)
[2020-03-03] MEDS ORDERED: PRENATAL VIT/IRON/FA 1 EACH TABLET ONE ×2 (07:22→16:21)
[2020-03-03] MEDS ORDERED: DOCUSATE 100 MG CAPSULE ONE (07:22)
[2020-03-03] MEDS ORDERED: FAMOTIDINE 20 MG TABLET ONE ×2 (07:23→16:21)
[2020-03-03] MEDS: SODIUM CHLORIDE FLUSH 3ML SYRINGE IVF SCH ×3 (09:00→21:00)
[2020-03-03] MEDS: DOCUSATE 100 MG CAPSULE PO SCH ×4 (09:00→21:00)
[2020-03-03 09:21] VITALS: BP 101/51
[2020-03-03] MEDS ORDERED: POLYETHYLENE GLYCOL 17 GM PACKET ONE (16:23)
[2020-03-03] MEDS: FAMOTIDINE 20 MG TABLET PO SCH ×3 (16:26→21:00)
[2020-03-03] MEDS: POLYETHYLENE GLYCOL 17 GM PACKET PO SCH (16:26)
[2020-03-03] MEDS: PRENATAL VIT/IRON/FA 1 EACH TABLET PO SCH (16:26)
[2020-03-03 21:46] LABS: BASOPHILS # (AUTO) 0.03 x10^3/uL (0-0.1); BASOPHILS % (AUTO) 0 % (0-1); EOSINOPHILS # (AUTO) 0.07 x10^3/uL (0-0.4); EOSINOPHILS % (AUTO) 1 % (1-7); LYMPHOCYTES # (AUTO) 2.08 x10^3/uL (1-3.4); LYMPHOCYTES % (AUTO) 22 % (22-44); MD NO; MEAN CORPUSCULAR HEMOGLOBIN 30.3 pg (27.0-34.8); MEAN CORPUSCULAR HGB CONC 34.2 g/dL (32.4-35.8); MEAN CORPUSCULAR VOLUME 88.6 fL (80-100); MEAN PLATELET VOLUME 8.9 fL (7.4-10.4); MONOCYTES # (AUTO) 0.63 x10^3/uL (0.2-0.8); MONOCYTES % (AUTO) 7 % (2-9); NEUTROPHILS # (AUTO) 6.58 x10^3/uL (1.8-6.8); NEUTROPHILS % (AUTO) 70 % (42-75); PLATELET COUNT 193 x10^3/uL (130-400); RED BLOOD COUNT 4.13 x10^6/uL (3.82-5.3); RED CELL DISTRIBUTION WIDTH 12.6 % (9.6-15.2)
[2020-03-04] MEDS ORDERED: DOCUSATE 100 MG CAPSULE ONE (07:10)
[2020-03-04 08:12] VITALS: BP 112/55
[2020-03-04] MEDS: SODIUM CHLORIDE FLUSH 3ML SYRINGE IVF SCH (08:20)
[2020-03-04] MEDS: DOCUSATE 100 MG CAPSULE PO SCH ×2 (09:00→21:00)
[2020-03-04] MEDS ORDERED: FAMOTIDINE 20 MG TABLET ONE (15:07)
[2020-03-04] MEDS ORDERED: PRENATAL VIT/IRON/FA 1 EACH TABLET ONE (15:07)
[2020-03-04] MEDS ORDERED: POLYETHYLENE GLYCOL 17 GM PACKET ONE (15:08)
[2020-03-04] MEDS: FAMOTIDINE 20 MG TABLET PO SCH ×2 (15:41→21:00)
[2020-03-04] MEDS: PRENATAL VIT/IRON/FA 1 EACH TABLET PO SCH (17:33)
[2020-03-04] MEDS: POLYETHYLENE GLYCOL 17 GM PACKET PO SCH (17:33)
[2020-03-04 20:23] VITALS: BP 132/72
[2020-03-05] MEDS: SODIUM CHLORIDE FLUSH 3ML SYRINGE IVF SCH ×2 (06:21→21:10)
[2020-03-05] MEDS ORDERED: DOCUSATE 100 MG CAPSULE PO PRN (07:30)
[2020-03-05] MEDS ORDERED: POLYETHYLENE GLYCOL 17 GM PACKET ONE (11:51)
[2020-03-05] MEDS: POLYETHYLENE GLYCOL 17 GM PACKET PO SCH (11:53)
[2020-03-05] MEDS ORDERED: FAMOTIDINE 20 MG TABLET ONE ×2 (11:54→19:13)
[2020-03-05] MEDS: FAMOTIDINE 20 MG TABLET PO PRN (11:56)
[2020-03-05] MEDS ORDERED: DOCUSATE 100 MG CAPSULE ONE (19:13)
[2020-03-05 21:04] VITALS: BP 133/79
[2020-03-05] MEDS ORDERED: PRENATAL VIT/IRON/FA 1 EACH TABLET ONE (21:06)
[2020-03-05] MEDS: PRENATAL VIT/IRON/FA 1 EACH TABLET PO SCH (21:09)
[2020-03-06] MEDS: POLYETHYLENE GLYCOL 17 GM PACKET PO SCH (09:00)
[2020-03-06] MEDS: SODIUM CHLORIDE FLUSH 3ML SYRINGE IVF SCH ×3 (09:00→21:00)
[2020-03-06] MEDS ORDERED: PRENATAL VIT/IRON/FA 1 EACH TABLET ONE (15:18)
[2020-03-06] MEDS ORDERED: FAMOTIDINE 20 MG TABLET ONE (15:18)
[2020-03-06] MEDS: FAMOTIDINE 20 MG TABLET PO PRN (15:20)
[2020-03-06] MEDS: PRENATAL VIT/IRON/FA 1 EACH TABLET PO SCH (15:20)
[2020-03-06 21:10] VITALS: BP 133/73
[2020-03-06 21:41] LABS: BASOPHILS # (AUTO) 0.04 x10^3/uL (0-0.1); BASOPHILS % (AUTO) 0 % (0-1); EOSINOPHILS # (AUTO) 0.07 x10^3/uL (0-0.4); EOSINOPHILS % (AUTO) 1 % (1-7); LYMPHOCYTES # (AUTO) 2.31 x10^3/uL (1-3.4); LYMPHOCYTES % (AUTO) 21 % (22-44); MD NO; MEAN CORPUSCULAR HGB CONC 33.6 g/dL (32.4-35.8); MEAN CORPUSCULAR VOLUME 89.3 fL (80-100); MEAN PLATELET VOLUME 8.9 fL (7.4-10.4); MONOCYTES # (AUTO) 0.69 x10^3/uL (0.2-0.8); MONOCYTES % (AUTO) 6 % (2-9); NEUTROPHILS # (AUTO) 8.01 x10^3/uL (1.8-6.8); NEUTROPHILS % (AUTO) 72 % (42-75); PLATELET COUNT 231 x10^3/uL (130-400); RED BLOOD COUNT 4.47 x10^6/uL (3.82-5.3); RED CELL DISTRIBUTION WIDTH 12.7 % (9.6-15.2)
[2020-03-07] MEDS: SODIUM CHLORIDE FLUSH 3ML SYRINGE IVF SCH ×2 (10:36→21:00)
[2020-03-07] MEDS ORDERED: POLYETHYLENE GLYCOL 17 GM PACKET ONE (11:34)
[2020-03-07] MEDS ORDERED: FAMOTIDINE 20 MG TABLET ONE (11:35)
[2020-03-07] MEDS: FAMOTIDINE 20 MG TABLET PO PRN (11:36)
[2020-03-07] MEDS: POLYETHYLENE GLYCOL 17 GM PACKET PO SCH (11:36)
[2020-03-07] MEDS ORDERED: NEWBORN KIT ONE (18:21)
[2020-03-07 21:00] VITALS: BP 125/70
[2020-03-07] MEDS: PRENATAL VIT/IRON/FA 1 EACH TABLET PO SCH (21:00)
[2020-03-08] MEDS ORDERED: METOCLOPRAMIDE 5 MG/ML, 2ML IV ONE (04:30)
[2020-03-08] MEDS ORDERED: CEFAZOLIN PMX 1GM/50ML 50 ML IVPB ONE (04:30)
[2020-03-08] MEDS ORDERED: LACTATED RINGERS 1,000 ML IVBOLUS ONE (04:30)
[2020-03-08] MEDS ORDERED: SODIUM CITRATE/CITRIC ACID 30 ML UDC PO ONE (04:30)
[2020-03-08] MEDS ORDERED: OXYTOCIN 30U/ 0.9% NaCL 500ML 500 ML ONE (05:13)
[2020-03-08] MEDS ORDERED: METOCLOPRAMIDE 5 MG/ML, 2ML ONE (06:50)
[2020-03-08] MEDS ORDERED: SODIUM CITRATE/CITRIC ACID 30 ML UDC ONE (06:50)
[2020-03-08] MEDS ORDERED: FENTANYL PF 100 MCG/2ML ONE (07:13)
[2020-03-08] MEDS ORDERED: OXYTOCIN 10 UNITS/ML, 1ML ONE ×4 (07:15)
[2020-03-08] MEDS ORDERED: EPHEDRINE 50 MG/ML, 1ML ONE (07:15)
[2020-03-08] MEDS ORDERED: CEFAZOLIN 1,000 MG ONE ×2 (07:15)
[2020-03-08] MEDS ORDERED: KETOROLAC 30 MG/1 ML ONE (07:15)
[2020-03-08] MEDS: KETOROLAC 30 MG/1 ML IV SCH ×3 (08:30→21:06)
[2020-03-08] MEDS: LACTATED RINGERS 1,000 ML IV SCH ×7 (08:35→19:13)
[2020-03-08] MEDS ORDERED: MISOPROSTOL 200 MCG TABLET PR PRN (09:00)
[2020-03-08] MEDS ORDERED: FENTANYL PF 100 MCG/2ML IV PRN (09:00)
[2020-03-08] MEDS ORDERED: GLYCERIN ADULT SUPP PR PRN (09:00)
[2020-03-08] MEDS ORDERED: morphine SULFATE 10 MG/ML, 1ML IVPush PRN (09:00)
[2020-03-08] MEDS ORDERED: BISACODYL 10 MG SUPP PR PRN (09:00)
[2020-03-08] MEDS ORDERED: IBUPROFEN 600 MG TABLET PO PRN (09:00)
[2020-03-08] MEDS ORDERED: ONDANSETRON 2MG/ML, 2ML IVPush PRN (09:00)
[2020-03-08] MEDS ORDERED: ALBUTEROL SULFATE 2.5 MG/3 ML NPPB PRN (09:00)
[2020-03-08] MEDS ORDERED: METOCLOPRAMIDE 5 MG/ML, 2ML IVPush PRN (09:00)
[2020-03-08] MEDS ORDERED: CARBOPROST TROMETHAMINE 250 MCG/ML, 1ML IM PRN (09:00)
[2020-03-08] MEDS ORDERED: EPHEDRINE 50 MG/ML, 1ML IVPush PRN (09:00)
[2020-03-08] MEDS ORDERED: METHYLERGONOVINE 0.2 MG/ML IM PRN (09:00)
[2020-03-08] MEDS ORDERED: DIPHENHYDRAMINE 50 MG/ML, 1ML IVPush PRN (09:00)
[2020-03-08] MEDS ORDERED: OXYcodone 5 MG/5 ML ORAL.SOL UDC PO PRN (09:00)
[2020-03-08] MEDS ORDERED: MEPERIDINE/PF 25MG/0.5ML IVPush PRN (09:00)
[2020-03-08] MEDS ORDERED: ACETAMINOPHEN 325 MG TABLET PO PRN (09:00)
[2020-03-08] MEDS: SODIUM CHLORIDE FLUSH 3ML SYRINGE IVF SCH ×2 (09:00→21:06)
[2020-03-08] MEDS ORDERED: DOCUSATE 100 MG CAPSULE PO PRN (09:00)
[2020-03-08] MEDS ORDERED: EPHEDRINE 50 MG/ML, 1ML IM PRN (09:00)
[2020-03-08] MEDS ORDERED: SIMETHICONE 80 MG CHEW TAB PO PRN (09:00)
[2020-03-08] MEDS ORDERED: LABETALOL 5MG/ML, 20ML IV PRN (09:00)
[2020-03-08] MEDS: POLYETHYLENE GLYCOL 17 GM PACKET PO SCH (09:00)
[2020-03-08] MEDS ORDERED: OXYcodone/APAP 5/325MG TABLET PO PRN (09:00)
[2020-03-08] MEDS: PRENATAL VIT/IRON/FA 1 EACH TABLET PO SCH ×2 (09:00→19:46)
[2020-03-08] MEDS: OXYTOCIN 30U/ 0.9% NaCL 500ML 500 ML IV SCH ×2 (10:01→18:35)
[2020-03-08 11:00] VITALS: BP 120/79
[2020-03-08] MEDS: OXYcodone IR 5MG TABLET PO PRN ×3 (11:39→19:47)
[2020-03-08] MEDS ORDERED: MORPHINE SULFATE 4 MG/ML, 1ML ONE (12:51)
[2020-03-08] MEDS ORDERED: MORPHINE SULFATE 4 MG/ML, 1ML IVPush PRN (13:00)
[2020-03-08 16:33] VITALS: BP 123/84
[2020-03-08 16:33] LABS: BASOPHILS # (AUTO) 0.03 x10^3/uL (0-0.1); BASOPHILS % (AUTO) 0 % (0-1); EOSINOPHILS # (AUTO) 0.02 x10^3/uL (0-0.4); EOSINOPHILS % (AUTO) 0 % (1-7); LYMPHOCYTES # (AUTO) 1.64 x10^3/uL (1-3.4); LYMPHOCYTES % (AUTO) 13 % (22-44); MD NO; MEAN CORPUSCULAR HEMOGLOBIN 29.8 pg (27.0-34.8); MEAN CORPUSCULAR HGB CONC 33.5 g/dL (32.4-35.8); MEAN PLATELET VOLUME 8.9 fL (7.4-10.4); MONOCYTES # (AUTO) 0.81 x10^3/uL (0.2-0.8); MONOCYTES % (AUTO) 6 % (2-9); NEUTROPHILS % (AUTO) 81 % (42-75); PLATELET COUNT 186 x10^3/uL (130-400); RED BLOOD COUNT 3.96 x10^6/uL (3.82-5.3); RED CELL DISTRIBUTION WIDTH 12.6 % (9.6-15.2)
[2020-03-08 19:50] VITALS: BP 126/80
[2020-03-09 00:33] VITALS: BP 121/81
[2020-03-09] MEDS: LACTATED RINGERS 1,000 ML IV SCH ×3 (00:35→04:35)
[2020-03-09] MEDS: KETOROLAC 30 MG/1 ML IV SCH ×4 (02:37→21:06)
[2020-03-09 03:23] VITALS: BP 127/88
[2020-03-09] MEDS: OXYTOCIN 30U/ 0.9% NaCL 500ML 500 ML IV SCH (04:35)
[2020-03-09 07:35] VITALS: BP 123/77
[2020-03-09] MEDS: POLYETHYLENE GLYCOL 17 GM PACKET PO SCH ×2 (09:00→12:43)
[2020-03-09] MEDS: PRENATAL VIT/IRON/FA 1 EACH TABLET PO SCH ×2 (09:00→10:34)
[2020-03-09] MEDS: SODIUM CHLORIDE FLUSH 3ML SYRINGE IVF SCH ×2 (09:05→15:16)
[2020-03-09 20:00] VITALS: BP 114/76
[2020-03-10] MEDS: KETOROLAC 30 MG/1 ML IV SCH (02:29)
[2020-03-10 08:00] VITALS: BP 118/79
[2020-03-10] MEDS: PRENATAL VIT/IRON/FA 1 EACH TABLET PO SCH (09:00)
[2020-03-10] MEDS: SODIUM CHLORIDE FLUSH 3ML SYRINGE IVF SCH (09:00)
[2020-03-10] MEDS ORDERED: IBUPROFEN 600 MG TABLET PO PRN (09:00)
[2020-03-10] MEDS ORDERED: IBUPROFEN 800 MG TABLET PO PRN (09:00)
[2020-03-10] MEDS: POLYETHYLENE GLYCOL 17 GM PACKET PO SCH (09:37)
[2020-03-10] MEDS ORDERED: DOCU-131 PO (14:58)
[2020-03-10] MEDS ORDERED: IBUP-1222 PO (14:58)
== END 2020-03-10 15:25 | disposition home or self-care (01) | DRG 783 ==
LOC: LDOP 18:50 → LDIP 19:20 → OBSVTOIN 19:20 → 2NW 03-08 10:34
PROVIDERS: ADMIT Student in an Organized Health Care Education/Training Program; ATTEND Student in an Organized Health Care Education/Training Program
PROC: 10D00Z1 Extraction of Products of Conception, Low, Open Approach (ICD-10-PCS; principal; 2020-03-08)
PROC: 0UB70ZZ Excision of Bilateral Fallopian Tubes, Open Approach (ICD-10-PCS; 2020-03-08)
DX: O32.1XX0 Maternal care for breech presentation, not applicable or unspecified (principal); O45.93 Premature separation of placenta, unspecified, third trimester; O76 Abnormality in fetal heart rate and rhythm complicating labor and delivery; O99.62 Diseases of the digestive system complicating childbirth; K59.00 Constipation, unspecified; Z37.0 Single live birth; Z3A.37 37 weeks gestation of pregnancy; Z90.89 Acquired absence of other organs; Z90.49 Acquired absence of other specified parts of digestive tract; Z91.018 Allergy to other foods
CPT/HCPCS: 36415; 76805; 76815; 76817; 82565; 83735; 84112; 85025; 85384; 85610; 85730; 86850; 86900; 87081; 88302; 88307; G0378; J0690; J1885; J2405; J3010; J2270; J2590; J2765; J3475; J7120